=== PATIENT | male | born 1970 | race American Indian/Alaskan Native ===

== ENCOUNTER 2017-11-02 09:17 | Emergency (ER) | payer SELFPAY ==
[2017-11-02 09:35] VITALS: BP 134/90
[2017-11-02] MEDS ORDERED: BOOSTRIX IM ONE (09:52)
[2017-11-02] MEDS ORDERED: NORCO 5/325 PO ONE (09:53)
[2017-11-02] MEDS ORDERED: KEFLEX PO ONE (09:53)
--- NOTE | 2017-11-02 09:59 | Emergency Department Report ---
ED Lower Extremity HPI - General Chief Complaint: Extremity Injury, Lower Stated Complaint: KNEE PAIN Time Seen by Provider: 11/02/17 09:48 Source: patient Mode of arrival: Ambulatory Limitations: No Limitations - History of Present Illness Initial Comments: 47-year-old male past medical history none presents with complaint of left knee pain and multiple abrasions status post mechanical fall while at work yesterday. Patient states he was moving furniture and lost his balance and fell onto his left knee. Patient states he fell onto a hard surface with rocks and gravel. Patient using crutches to ambulate as well weight-bearing left knee is painful. Patient has multiple small abrasions to anterior left oakley and knee. Patient is unsure of his tetanus status. Patient denies any other injuries. Is awake alert and oriented 3. States that standing on leg is very painful. MD Complaint: knee injury Onset/Timin Injury: Knee: Left Type of Injury: blunt Place: work Severity: moderate Severity scale (0 -10): 6 Improves With: cold therapy, immobilization Worsens With: weight bearing, palpation Context: fall Associated Symptoms: snap/pop sensation, swelling, unable to bear weight - Related Data Previous Rx's Medication Instructions Recorded Last Taken Type Bacitracin Zinc Oint [Antibiotic 1 applicatio TP BID #1 tube 11/02/17 Unknown Rx Oint] Cyclobenzaprine [Flexeril] 10 mg PO TID PRN #12 tablet 11/02/17 Unknown Rx Ibuprofen [Motrin] 800 mg PO Q8HR PRN #25 tablet 11/02/17 Unknown Rx Allergies Allergy/AdvReac Type Severity Reaction Status Date / Time No Known Allergies Allergy Unverified 11/02/17 09:32 ED Review of Systems ROS: Stated complaint: KNEE PAIN Other details as noted in HPI Constitutional: denies: chills, fever Eyes: denies: eye pain, eye discharge, vision change ENT: denies: ear pain, throat pain Respiratory: denies: cough, shortness of breath, wheezing Cardiovascular: denies: chest pain, palpitations Endocrine: no symptoms reported Gastrointestinal: denies: abdominal pain, nausea, diarrhea Genitourinary: denies: urgency, dysuria Musculoskeletal: as per HPI. denies: back pain, joint swelling, arthralgia Skin: denies: rash, lesions Neurological: denies: headache, weakness, paresthesias Psychiatric: denies: anxiety, depression Hematological/Lymphatic: denies: easy bleeding, easy bruising ED Past Medical Hx - Past Medical History Previous Medical History?: No - Surgical History Past Surgical History?: No - Social History Smoking Status: Never Smoker Substance Use Type: Alcohol, Marijuana - Medications Home Medications: Home Medications Medication Instructions Recorded Confirmed Last Taken Type Bacitracin Zinc Oint [Antibiotic 1 applicatio TP BID #1 tube 11/02/17 Unknown Rx Oint] Cyclobenzaprine [Flexeril] 10 mg PO TID PRN #12 tablet 11/02/17 Unknown Rx Ibuprofen [Motrin] 800 mg PO Q8HR PRN #25 tablet 11/02/17 Unknown Rx ED Physical Exam - General Limitations: No Limitations General appearance: alert, in no apparent distress - Head Head exam: Present: atraumatic, normocephalic - Eye Eye exam: Present: normal appearance, PERRL, EOMI - ENT ENT exam: Present: mucous membranes moist - Neck Neck exam: Present: normal inspection - Respiratory Respiratory exam: Present: normal lung sounds bilaterally. Absent: respiratory distress - Cardiovascular Cardiovascular Exam: Present: regular rate, normal rhythm. Absent: systolic murmur, diastolic murmur, rubs, gallop - GI/Abdominal GI/Abdominal exam: Present: soft, normal bowel sounds - Rectal Rectal exam: Present: deferred - Extremities Exam Extremities exam: Present: normal inspection - Expanded Lower Extremity Exam Left Hip exam: Present: normal inspection, full ROM Upper Leg exam: Present: normal inspection, full ROM Knee exam: Present: tenderness (anterior left knee tenderness and swelling), abrasion (small 1 cm deep abrasion above the left kneecap), full knee extension Lower Leg exam: Present: abrasion (multiple small abrasions left anterior oakley) Ankle exam: Present: normal inspection, full ROM Foot/Toe exam: Present: normal inspection, full ROM Neuro vascular tendon exam: Present: no vascular compromise (distal dorsalis pedis and posterior tibial pulses intact) Gait: Positive: antalgic 1 - Abrasion here 2 - Multiple small less than 1 cm abrasion here - Back Exam Back exam: Present: normal inspection - Neurological Exam Neurological exam: Present: alert, oriented X3 - Psychiatric Psychiatric exam: Present: normal affect, normal mood - Skin Skin exam: Present: warm, dry, intact, normal color. Absent: rash ED Course Vital Signs 11/02/17 09:32 Temperature 98.6 F Pulse Rate 92 H Respiratory 18 Rate Blood Pressure 134/90 O2 Sat by Pulse 98 Oximetry ED Lower Extremity MDM - Medical Decision Making A/P: Left knee contusion, left knee sprain, left knee abrasion 1-x-ray shows no fractures. Patient already has crutches that he is using to ambulate 2-RICE therapy, Jerad wrap 3-Motrin. Topical bacitracin and short course of Keflex. Tetanus vaccine updated today 4-f/u with primary care and orthopedics Critical care attestation.: If time is entered above; I have spent that time in minutes in the direct care of this critically ill patient, excluding procedure time. ED Disposition Clinical Impression: Left knee sprain Qualifiers: Encounter type: initial encounter Involved ligament of knee: unspecified ligament Qualified Code(s): S83.92XA - Sprain of unspecified site of left knee, initial encounter Abrasion of knee, left Qualifiers: Encounter type: initial encounter Qualified Code(s): S80.212A - Abrasion, left knee, initial encounter Contusion of left knee Qualifiers: Encounter type: initial encounter Qualified Code(s): S80.02XA - Contusion of left knee, initial encounter Disposition: TO HOME OR SELFCARE Is pt being admited?: No Does the pt Need Aspirin: No Condition: Stable Instructions: Abrasion (ED), Knee Sprain (ED) Prescriptions: Bacitracin Zinc Oint [Antibiotic Oint] 1 applicatio TP BID #1 tube Cyclobenzaprine [Flexeril] 10 mg PO TID PRN #12 tablet PRN Reason: Muscle Spasm Ibuprofen [Motrin] 800 mg PO Q8HR PRN #25 tablet PRN Reason: Pain , Severe (7-10) Referrals: FRANCISCO JAVIER CASTILLO MD [Primary Care Provider] - 3-5 Days ISAMAR ROWLAND MD [Staff Physician] - 3-5 Days [facility] [Provider Group] - 3-5 Days Forms: Work/School Release Form(ED) Time of Disposition: :39
--- NOTE | 2017-11-02 10:29 | XRay Report ---
LEFT KNEE RADIOGRAPHS INDICATION: Pain, status post fall. COMPARISON: None similar at this institution. FINDINGS: AP, lateral, oblique and sunrise views of the left knee demonstrate intact articulation. Patellofemoral joint space narrowing possible with slight superior and inferior patellar articular poles and tibial spines degenerative spurring. Moderate to large suprapatellar effusion suspected. CONCLUSION: Left suprapatellar effusion suspected with mild left knee degenerative changes without acute fracture or dislocation. Please correlate. Thank you for the opportunity to participate in this patient's care.
[2017-11-02] MEDS ORDERED: TRIPLE ANTIBIOTIC TP ONE ×2 (10:49→10:51)
== END 2017-11-02 11:02 | disposition home or self-care (01) ==
LOC: ED 09:17
DX: S83.92XA Sprain of unspecified site of left knee, initial encounter (principal); F12.10 Cannabis abuse, uncomplicated; W18.39XA Other fall on same level, initial encounter; Y93.B2 Activity, push-ups, pull-ups, sit-ups; Y99.8 Other external cause status; Y92.89 Other specified places as the place of occurrence of the external cause
CPT/HCPCS: 90471; 90715; 99283; A6250

== ENCOUNTER 2019-03-07 09:05 | Emergency (ER) | payer BC ==
[2019-03-07 09:11] VITALS: BP 139/86
--- NOTE | 2019-03-07 10:05 | Emergency Department Report ---
Chief Complaint: Upper Respiratory Infection Stated Complaint: COLD SYMPTOMS Time Seen by Provider: 03/07/19 10:00 - HPI History of Present Illness: Mr. Tamez is a healthy male without significant past medical history presents with URI symptoms of headache nasal congestion and nonproductive cough. Multiple sick contacts at home including significant other and daughter. He also had exposure to sick patient while on a flight from [place]. Flight passenger near him has a persistent cough. Medical screening exam performed. No evidence of acute emergent condition. Recommended rest and hydration. Further evaluation and treatment unnecessary for nonemergent condition at this time. Stable vital signs without fever here in emergency department. - Exam Vital Signs: Vital Signs 03/07/19 09:09 Temperature 98.4 F Pulse Rate 101 H Respiratory 18 Rate Blood Pressure 139/86 O2 Sat by Pulse 96 Oximetry MSE screening note: Focused history and physical exam performed. Due to findings the following was ordered: ED Disposition for MSE Clinical Impression: URI (upper respiratory infection) Disposition: Z-07 MED SCREENING EXAM-LEFT Is pt being admited?: No Does the pt Need Aspirin: No Condition: Stable Forms: Work/School Release Form(ED)
== END 2019-03-07 11:07 | disposition left against medical advice (07) ==
LOC: ED 09:05
DX: J06.9 Acute upper respiratory infection, unspecified (principal)
CPT/HCPCS: 99282